=== PATIENT | male | born 1975 | race Caucasian/White ===

== ENCOUNTER 2018-10-27 04:17 | Emergency (ER) | payer OTHER ==
--- NOTE | 2018-10-27 04:37 | ED ---
Substance Abuse/Use - HPI Summary HPI Summary: This patient is a 43 year old M brought in by EMS with a chief complaint of EtOH abuse since earlier tonight. EMS states that he is nonviolent, non- combative, and obeys commands. They measured his vitals at HR 100 bpm and BP 130 /82. His family was worried because he was loud and belligerent, and they believe it might be his antidepressant interacting with the alcohol. The patient states that he quit drinking for 6 months but I guess I fell off. PMHX Anxiety, EtOH abuse. SHX from [place]. - History Of Current Complaint Chief Complaint: EDSubstanceAbuse Stated Complaint: ETOH Hx Obtained From: Patient, EMS Onset/Duration of Drug/ETOH Abuse: Hours Ingestion History: Type/Name Of Drug - EtOH Character: Other - belligerent - Risk Factor(s) Completed Suicide Risk Factors: Male - Allergies/Home Medications Allergies/Adverse Reactions: Allergies Allergy/AdvReac Type Severity Reaction Status Date / Time Hayfever Allergy See Comment Uncoded 10/27/18 04:30 Home Medications: Home Medications Sertraline HCl [Zoloft] 25 mg PO DAILY 10/27/18 [History Confirmed 10/27/18] PMH/Surg Hx/FS Hx/Imm Hx History: Denies: Hx Dialysis Sensory History: Denies: Hx Deafness Infectious Disease History: No Infectious Disease History: Denies: Traveled Outside the [place] in Last 30 Days - Family History Known Family History: Positive: Non-Contributory - Social History Alcohol Use: Weekly Substance Use Type: Reports: None Smoking Status (MU): Never Smoked Tobacco Review of Systems Positive: Slurred Speech Psychological: Other - belligerent Negative: Other - violence All Other Systems Reviewed And Are Negative: Yes Physical Exam - Summary Physical Exam Summary: Appearance: Well-appearing, Well-nourished, lying in bed comfortably. EtOH intoxication. Mild ataxia Skin: Warm, dry, no obvious rash Eyes: sclera anicteric, no conjunctival pallor ENT: mucous membranes moist, pharynx appears normal Neck: Supple, nontender Respiratory: Clear to auscultation, no signs of respiratory distress Cardiovascular: Normal S1, S2. No murmurs. Normal distal pulses in tibial and radial bilaterally. Abdomen: Soft, nontender, normal active bowel sounds present Musculoskeletal: Normal, Strength/ROM Intact Neurological: A&Ox3, awake and alert, mentation is normal, speech is slightly slurred Psychiatric: affect is normal, does not appear anxious or depressed Triage Information Reviewed: Yes Vital Signs On Initial Exam: Initial Vitals Temp Pulse Resp BP Pulse Ox 98.9 F 115 20 157/103 97 10/27/18 04:18 10/27/18 04:18 10/27/18 04:18 10/27/18 04:18 10/27/18 04:18 Vital Signs Reviewed: Yes Diagnostics - Vital Signs Vital Signs Temp Pulse Resp BP Pulse Ox 10/27/18 04:18 98.9 F 115 20 157/103 97 - Laboratory Lab Statement: Any lab studies that have been ordered have been reviewed, and results considered in the medical decision making process. Course/Dx - Course Course Of Treatment: This patient is a 43 year old M brought in by EMS with a chief complaint of EtOH abuse since earlier tonight. EMS states that he is nonviolent, non-combative, and obeys commands. They measured his vitals at HR 100 bpm and BP 130/82. His family was worried because he was loud and belligerent, and they believe it might be his antidepressant interacting with the alcohol. The patient states that he quit drinking for 6 months but I guess I fell off.". The patient will be signed out by Dr. Hayes to Dr. Lara, awaiting sobriety. - Diagnoses Provider Diagnoses: Alcohol intoxication, Alcohol abuse Discharge - Sign-Out/Discharge Documenting (check all that apply): Sign-Out Patient Signing out patient TO: Sky Lara - Discharge Plan Condition: Improved Disposition: HOME Patient Education Materials: Alcohol Intoxication (ED), Abuse of Alcohol (ED) Referrals: [facility] [Outside] [facility] [Outside] [facility] [Outside] Additional Instructions: Follow up with [facility], Alcoholics Anonymous, and [facility] in 2-3 days as needed. Return to the emergency department for any new or worsening symptoms. - Billing Disposition and Condition Condition: IMPROVED Disposition: Home - Attestation Statements Document Initiated by Scribe: Yes Documenting Scribe: Evan Adair Provider For Whom Scribe is Documenting (Include Credential): Sky Hayes MD Scribe Attestation: Evan Daniels, scribed for Sky Hayes MD on 10/27/18 at 1842. Scribe Documentation Reviewed: Yes Provider Attestation: The documentation as recorded by the scribe, Evan Adair accurately reflects the service I personally performed and the decisions made by me, Sky Hayes MD Status of Scribzac Document: Viewed
--- NOTE | 2018-10-27 09:18 | ED ---
Progress - Progress Note Progress Note: The patient is a sign-out from Dr. Sky Hayes MD, to Dr. Sky Lara MD , at change of shift at 0700 pending EtOH detoxification and discharge. At 0915 , the patient is awake and able to go home. He will be discharged with a dx of alcohol intoxication and abuse, education materials, and a follow up with [facility], Alcoholics Anonymous, and [facility] as necessary. He agrees with this plan and understands the need for return to the ED if new or worsening symptoms appear. Re-Evaluation - Re-Evaluation First Eval Re-Evaluation Time: 09:15 Change: Improved Comment: Patient is awake and able to go home. Course/Dx - Course Course Of Treatment: This patient is a 43 year old M brought in by EMS with a chief complaint of EtOH abuse since earlier tonight. EMS states that he is nonviolent, non-combative, and obeys commands. They measured his vitals at HR 100 bpm and BP 130/82. His family was worried because he was loud and belligerent, and they believe it might be his antidepressant interacting with the alcohol. The patient states that he quit drinking for 6 months but I guess I fell off.". The patient will be signed out by Dr. Hayes to Dr. Lara, awaiting sobriety. - Diagnoses Provider Diagnoses: Alcohol intoxication, Alcohol abuse Discharge - Sign-Out/Discharge Documenting (check all that apply): Patient Departure - Patient will be discharged home. - Discharge Plan Condition: Improved Disposition: HOME Patient Education Materials: Alcohol Intoxication (ED), Abuse of Alcohol (ED) Referrals: [facility] [Outside] [facility] [Outside] [facility] [Outside] Additional Instructions: Follow up with [facility], Alcoholics Anonymous, and Alcohol Drug [facility] in 2-3 days as needed. Return to the emergency department for any new or worsening symptoms. - Billing Disposition and Condition Condition: IMPROVED Disposition: Home - Attestation Statements Document Initiated by Scribe: Yes Documenting Scribe: Eva Sims Provider For Whom Scribe is Documenting (Include Credential): Dr. Sky Lara MD Scribe Attestation: IEva, scribed for Dr. Sky Lara MD on 10/27/18 at 1838. Scribe Documentation Reviewed: Yes Provider Attestation: The documentation as recorded by the guilhermeibe, Eva Sims accurately reflects the service I personally performed and the decisions made by me, Dr. Sky Lara MD Status of Stormy Document: Viewed
[2018-10-27 09:37] VITALS: BP 153/89
== END 2018-10-27 09:37 | disposition home or self-care (01) ==
LOC: ED 04:17
DX: F10.129 Alcohol abuse with intoxication, unspecified (principal)
CPT/HCPCS: 99283